=== PATIENT | male | born 1955 | race Two or more races ===

== ENCOUNTER 2017-05-04 09:23 | Day surgery (SDC) | payer OTHER ==
[2017-05-04] MEDS ORDERED: Propofol 10 mg/ml Inj (20 ML) ONE (11:06)
[2017-05-04] MEDS ORDERED: Lactated Ringer's 500 ML IV ONE (11:25)
[2017-05-04 11:56] VITALS: TEMP 96.8; O2SAT 99
[2017-05-04 12:06] VITALS: BP 100/70; PULSE 67; RESP 20
== END 2017-05-04 12:30 | disposition home or self-care (01) ==
LOC: H.ENDO 09:23
PROVIDERS: ATTEND Internal Medicine Gastroenterology
DX: Z12.11 Encounter for screening for malignant neoplasm of colon (principal); I10 Essential (primary) hypertension; E11.9 Type 2 diabetes mellitus without complications; K64.8 Other hemorrhoids; K30 Functional dyspepsia; K44.9 Diaphragmatic hernia without obstruction or gangrene; K29.50 Unspecified chronic gastritis without bleeding